=== PATIENT | male | born 1965 | race Caucasian/White ===

== ENCOUNTER 2020-10-23 15:05 | Emergency (ER) | payer BC ==
[~2020-10-23] VITALS: Ht 177.8 cm; Wt 88.5 kg
[~2020-10-23 15:05] MED LIST: AMIT50 PO; ANTIBIOTIC; CIPR500 PO; HYDACE25S PR; HYDACE5 PO; HYDCOR1TOA TOP; IBUP800 PO; LACT10SY PO; LEVSOD50 PO; LISI5 PO; METR500 PO; MINO100 PO; NAPR500 PO; OXYACE5T PO; PROM25 PO; RXCLIN PO; STOOL SOFTNERS
== END 2020-10-23 20:00 | disposition home or self-care (01) ==
LOC: ER 15:05
DX: U07.1 COVID-19 (principal); I10 Essential (primary) hypertension; E03.9 Hypothyroidism, unspecified
CPT/HCPCS: 71045; 99283-25